=== PATIENT | male | born 1965 | race Caucasian/White ===

== ENCOUNTER → 2017-01-26 | Outpatient (CLI) | payer OTHER ==
[~2017-01-26] MED LIST: ATOR-22 PO; FLUT0.15 NAE; LANS15CA6 PO; OMEG10007 PO
[2017-01-26 13:11] LABS: CHOLESTEROL/HDL RATIO 3.6
== END | disposition home or self-care (01) ==
LOC: C.LABPBG 07:51
PROVIDERS: ATTEND Family Medicine
DX: Z13.220 Encounter for screening for lipoid disorders (principal); Z13.1 Encounter for screening for diabetes mellitus; Z11.59 Encounter for screening for other viral diseases

== ENCOUNTER 2021-01-09 14:27 | Inpatient (IN) ==
--- NOTE | 2021-01-09 14:35 | Emergency Department Note ---
Impression & Plan Cerebrovascular accident, Acute left-sided weakness ED Provider Note Provider: Sherman Pack MD DATE OF SERVICE: 01/09/2021 CHIEF COMPLAINT: HISTORY OF PRESENT ILLNESS: Patient is a 55-year-old gentleman history of hyperlipidemia, allergies, and GERD presenting here today after noted some left facial droop and weakness on his left side. Patient states he received the first shot of coronavirus vaccine 3 days ago on Thursday in his left upper arm. Little bit under the weather yesterday but this morning he states that he noted he felt a bit weak in his left arm and leg. states she noticed he seemed to be "processing "things a bit slower than normal. She states she did not particularly look this morning to see if he was weak but she came back from her home health physical therapy appointments today (she is a physical therapist) and noted these and states she did a quick exam at home and he is having difficulty walking and weakness and skoupw-nn-hkdr ataxia on the left side. Patient denies headache or falls. Denies neck pain. Patient denies any fevers. Patient states that he thinks he noticed some of the weakness symptoms before 8 AM this morning. Does report at times he feels a little bit dizzy. Has had some gait abnormalities per the and this is new on the left side. also noted that he did not seem to be snoring so much overnight she is unsure if maybe had some changes overnight. REVIEW OF SYSTEMS: A total of 10 review of systems was obtained and negative except as stated above in the HPI. PAST MEDICAL HISTORY: As noted above MEDICATIONS: Reviewed home medications with patient and , not on blood thinners or aspirin SOCIAL HISTORY: Non-smoker, works at [employer] PHYSICAL EXAM: GENERAL: alert and oriented in no acute distress on stretcher Head: normocephalic and atraumatic EYES: No injection, discharge or icterus. PERRL NECK: Trachea midline. Supple. ENT: Mucous membranes pink and moist. LUNGS: Airway patent. No retractions. Breath sounds clear with good air entry bilaterally. HEART: Regular rate and rhythm. No chest wall tenderness ABDOMEN: Soft and non-tender, without guarding or rebound. SKIN: Acyanotic, warm, dry, without rashes EXTREMITIES: Without swelling, tenderness or deformity except for some slight soreness of the left upper arm around the site of prior vaccine injection. NEUROLOGICAL: No aphasia. Patient with some moderate left-sided facial droop. Tongue midline. 3-5 strength in the left upper extremity and 4-5 in the right lower extremity. No jgoj-rq-ufdl ataxia bilaterally but left-sided fin robert-to-nose ataxia appreciated. Right upper extremity appears intact with 5 out of 5 strength. Denies any numbness in the upper or lower extremities to exam. EK beats per normal sinus rhythm. No PVC or PAC. No acute ST segment elevation or depression. Normal QTC. CONTINUOUS CARDIAC MONITORING: was ordered and showed a heart rate of 90 bpm in normal sinus rhythm Patient's laboratory studies and imaging reviewed. Differential includes Infection, dehydration, metabolic abnormality, hyp o/hyperglycemia, electrolyte disturbance, anemia, hypoxia, cardiac sources, intracerebral event, toxicologic, neurologic, as well as other pathologies. IMPRESSION/MEDICAL DECISION MAKING: Presentation concerning for CVA. Unfortunately arrives outside for half hour window for TPA given last known well sometime before 8 AM this morning. Does not appear meningitic. No trauma reported. Left-sided facial droop, left upper extremity and left lower extremity mild weakness appreciated with some left ivvxum-vu-[id number] ataxia. CT scan of the head and CT angiogram of the head and neck was ordered. Basic labs were completed as well. Patient not hypoglycemic. EKG without significant change and no significant arrhythmia appreciated while here in the emergency department. Mildly hypertensive. Laboratory studies without significant anemia or leukocytosis. No significant electrolyte abnormality noted. Troponin is negative. Rapid Covid pending for admission. CT of the head without intracranial bleed or mass noted per radiology report. CT angiograms without acute stenosis/occlusion appreciated per the radiology report. Again clinically exam is highly concerning for small vessel stroke versus much less likely a vaccine reaction. Discussed with patient and at bedside. Will defer oral aspirin at this time given failed speech given the facial droop; rectal aspirin ordered but the patient declines medication. Discussed with the hospitalist team for further care as an inpatient. DIAGNOSIS: Left-sided weakness, CVA DISPOSITION: Hospitalist will evaluate Patient was agreeable with this plan. Past Med/Surg History Medical History (Updated 01/09/21 @ 17:15 by JODIE Catalan) Allergic rhinitis Hyperlipidemia Internal hemorrhoids Seasonal allergies Surgical History History of elbow surgery April 13, 2018. Dr Lord History of nasal surgery Nasal Septal Deviation Repair Spermatocele of epididymis May 06, 2018. Dr Nava Status post tendon repair bicep Family History Aunt Breast cancer Father Myocardial infarction Diabetes Grandmother (Maternal) Stroke Mother Atrial fibrillation Hyperlipidemia Malignant neoplasm of oral cavity Daughter No known health problems Denies family history of Colon cancer Ovarian cancer Prostate cancer Social History Smoking Status: Never smoker Second Hand Exposure: Yes; Hx Alcohol Use: No Hx Substance Use: No Preferred Language: Vietnamese Communication Ability: Effective Visual Impairment: No Limitations Hearing Ability: Normal Beliefs That Will Affect Care: None marital status: Current Living Situation: Spouse current occupational status: employed current occupation: production machine shop supervisor at [employer] Other Information That Helps Us Care for You: No Feels Safe at Home: Yes Safety Concerns: Feels Safe At This Time Childhood Exposure to Second-Hand Smoke: Yes Diet Comment: no specific diet Dental Care, Regularly: Yes Physical Activity Frequency: Does not Exercise Seatbelt Use: always Sunscreen Use: Yes Do you think of yourself as: straight/heterosexual Assistive Devices: None Allergies Allergies Allergy/AdvReac Type Severity Reaction Status Date / Time No Known Allergies Allergy Verified 01/09/21 14:49 Home Meds Home Medications Medication Instructions Recorded Confirmed loratadine-pseudoephedrine 1 tab PO DAILY 01/09/21 01/09/21 [Loratadine-D] Previous Rx's Medication Instructions Recorded pantoprazole 40 mg tablet,delayed 40 mg PO DAILY #90 tab 07/19/20 release fluticasone propionate 50 2 spray INTNAS DAILY #48 g 12/06/20 mcg/actuation nasal spray,suspension Results & Data (ED) Vital Signs Vital Signs - 24 hr 01/09/21 14:28 01/09/21 14:57 01/09/21 15:14 Temperature 36.7 C Temperature Source Temporal Artery Scan Pulse Rate 92 H 75 Pulse Rate from SpO2 Sensor 75 Respiratory Rate 16 24 Respiratory Effort / Characteristics Non-Labored Spontaneous Respiratory Depth Normal Blood Pressure 148/96 H Blood Pressure Mean 113 Blood Pressure Position Sitting Pulse Oximetry 99 99 98 Oxygen Delivery Method Room Air Room Air Sepsis Recent Fever Within 48 Hours No Sepsis New/Unexplained Change in Mental Status No Sepsis Action Taken by Nursing No Action Required 01/09/21 15:30 01/09/21 16:00 01/09/21 16:30 Temperature Temperature Source Pulse Rate 73 74 84 Pulse Rate from SpO2 Sensor 73 75 83 Respiratory Rate 16 17 24 Respiratory Effort / Characteristics Respiratory Depth Blood Pressure Blood Pressure Mean Blood Pressure Position Pulse Oximetry 98 99 97 Oxygen Delivery Method Sepsis Recent Fever Within 48 Hours Sepsis New/Unexplained Change in Mental Status Sepsis Action Taken by Nursing 01/09/21 16:47 01/09/21 17:00 Temperature Temperature Source Pulse Rate 77 73 Pulse Rate from SpO2 Sensor Respiratory Rate 22 21 Respiratory Effort / Characteristics Respiratory Depth Blood Pressure 151/90 H 145/92 H Blood Pressure Mean 110 109 Blood Pressure Position Pulse Oximetry 98 Oxygen Delivery Method Room Air Sepsis Recent Fever Within 48 Hours Sepsis New/Unexplained Change in Mental Status Sepsis Action Taken by Nursing Laboratory Data Result diagrams: 01/09/21 14:43 01/09/21 14:43 Lab Results 01/09/21 01/09/21 01/09/21 Range/Units 14:38 14:43 14:43 WBC 8.58 (4.8-10.8) K/uL RBC 5.06 (4.7-6.1) M/uL Hgb 15.2 (14.0-18.0) g/dL Hct 44.5 (42-52) % MCV 87.9 (80-100) fL MCH 30.0 (25-34) pg MCHC 34.2 (32-36) g/dL RDW Std Deviation 42.9 (36.4-46.3) fL RDW Coeff of Mane 13.3 (11.5-14.5) % Plt Count 223 (130-400) K/uL MPV 8.1 (7.4-10.4) fL Immature Gran % (Auto) 0.3 % Neut % (Auto) 64.6 % Lymph % (Auto) 24.8 % [place] % (Auto) 7.8 % Eos % (Auto) 2.3 % Baso % (Auto) 0.2 % Neut # (Auto) 5.53 (1.4-6.5) K/uL Lymph # (Auto) 2.13 (1.2-3.4) K/uL [place] # (Auto) 0.67 H (0.11-0.59) K/uL Eos # (Auto) 0.20 (0-0.5) K/uL Baso # (Auto) 0.02 (0-0.2) K/uL Immature Gran # (Auto) 0.03 H (0.00-0.02) K/uL PT 9.6 (9.0-12.0) Seconds INR 0.9 (0.9-1.1) APTT 25.7 (21.0-31.0) Seconds PTT Ratio 1.0 Sodium (136-145) mmol/L Potassium (3.5-5.1) mmol/L Chloride (98-107) mmol/L Carbon Dioxide (21-32) mmol/L Anion Gap (3-11) BUN (7-18) mg/dl Creatinine (0.6-1.4) mg/dl Est Cr Clr Drug Dosing ml/min Est GFR ( Amer) Est GFR (Non-Af Amer) BUN/Creatinine Ratio (10-20) Glucose (70-99) mg/dl POC Glucose 116 H (70-99) mg/dl Calcium (8.5-10.1) mg/dl Magnesium (1.8-2.4) mg/dl Total Bilirubin (0.2-1) mg/dl AST (15-37) U/L ALT (12-78) U/L Alkaline Phosphatase (45-117) U/L Troponin I (0-0.045) ng/ml Total Protein (6.4-8.2) gm/dl Albumin (3.4-5.0) gm/dl Globulin (2.5-4.0) gm/dl Albumin/Globulin Ratio (0.9-2) COVID-19 Eval Order SARS-CoV-2, RNA, NAAT (NEGATIVE) Blood Type Antibody Screen 01/09/21 01/09/21 01/09/21 Range/Units 14:43 15:09 15:22 WBC (4.8-10.8) K/uL RBC (4.7-6.1) M/uL Hgb (14.0-18.0) g/dL Hct (42-52) % MCV (80-100) fL MCH (25-34) pg MCHC (32-36) g/dL RDW Std Deviation (36.4-46.3) fL RDW Coeff of Mane (11.5-14.5) % Plt Count (130-400) K/uL MPV (7.4-10.4) fL Immature Gran % (Auto) % Neut % (Auto) % Lymph % (Auto) % [place] % (Auto) % Eos % (Auto) % Baso % (Auto) % Neut # (Auto) (1.4-6.5) K/uL Lymph # (Auto) (1.2-3.4) K/uL [place] # (Auto) (0.11-0.59) K/uL Eos # (Auto) (0-0.5) K/uL Baso # (Auto) (0-0.2) K/uL Immature Gran # (Auto) (0.00-0.02) K/uL PT (9.0-12.0) Seconds INR (0.9-1.1) APTT (21.0-31.0) Seconds PTT Ratio Sodium 139 (136-145) mmol/L Potassium 4.0 (3.5-5.1) mmol/L Chloride 107 (98-107) mmol/L Carbon Dioxide 28 (21-32) mmol/L Anion Gap 4.0 (3-11) BUN 15 (7-18) mg/dl Creatinine 1.04 (0.6-1.4) mg/dl Est Cr Clr Drug Dosing 91.9 ml/min Est GFR ( Amer) 93.2 Est GFR (Non-Af Amer) 80.5 BUN/Creatinine Ratio 14.2 (10-20) Glucose 105 H (70-99) mg/dl POC Glucose (70-99) mg/dl Calcium 9.6 (8.5-10.1) mg/dl Magnesium 2.4 (1.8-2.4) mg/dl Total Bilirubin 0.4 (0.2-1) mg/dl AST 18 (15-37) U/L ALT 44 (12-78) U/L Alkaline Phosphatase 81 (45-117) U/L Troponin I < 0.015 (0-0.045) ng/ml Total Protein 7.6 (6.4-8.2) gm/dl Albumin 3.8 (3.4-5.0) gm/dl Globulin 3.8 (2.5-4.0) gm/dl Albumin/Globulin Ratio 1.0 (0.9-2) COVID-19 Eval [facility] SARS-[facility]-2, RNA, NAAT (NEGATIVE) Blood Type A Positive Antibody Screen NEGATIVE 01/09/21 Range/Units 15:22 WBC (4.8-10.8) K/uL RBC (4.7-6.1) M/uL Hgb (14.0-18.0) g/dL Hct (42-52) % MCV (80-100) fL MCH (25-34) pg MCHC (32-36) g/dL RDW Std Deviation (36.4-46.3) fL RDW Coeff of Mane (11.5-14.5) % Plt Count (130-400) K/uL MPV (7.4-10.4) fL Immature Gran % (Auto) % Neut % (Auto) % Lymph % (Auto) % [place] % (Auto) % Eos % (Auto) % Baso % (Auto) % Neut # (Auto) (1.4-6.5) K/uL Lymph # (Auto) (1.2-3.4) K/uL [place] # (Auto) (0.11-0.59) K/uL Eos # (Auto) (0-0.5) K/uL Baso # (Auto) (0-0.2) K/uL Immature Gran # (Auto) (0.00-0.02) K/uL PT (9.0-12.0) Seconds INR (0.9-1.1) APTT (21.0-31.0) Seconds PTT Ratio Sodium (136-145) mmol/L Potassium (3.5-5.1) mmol/L Chloride (98-107) mmol/L Carbon Dioxide (21-32) mmol/L Anion Gap (3-11) BUN (7-18) mg/dl Creatinine (0.6-1.4) mg/dl Est Cr Clr Drug Dosing ml/min Est GFR ( Amer) Est GFR (Non-Af Amer) BUN/Creatinine Ratio (10-20) Glucose (70-99) mg/dl POC Glucose (70-99) mg/dl Calcium (8.5-10.1) mg/dl Magnesium (1.8-2.4) mg/dl Total Bilirubin (0.2-1) mg/dl AST (15-37) U/L ALT (12-78) U/L Alkaline Phosphatase (45-117) U/L Troponin I (0-0.045) ng/ml Total Protein (6.4-8.2) gm/dl Albumin (3.4-5.0) gm/dl Globulin (2.5-4.0) gm/dl Albumin/Globulin Ratio (0.9-2) COVID-19 Eval Order SARS-CoV-2, RNA, NAAT NEGATIVE (NEGATIVE) Blood Type Antibody Screen Administered Medications Aspirin (Aspirin 81 Mg Ectab) 81 mg PO QAM ANASTACIO Stop: 02/08/21 16:44 Last Admin: 01/09/21 16:49 Dose: 81 mg Documented by: [id number] Heparin Sodium (Porcine) (Heparin Sod 5,000 Unit/0.5 Ml Vial) 5,000 units SQ Q12 ANASTACIO Stop: 02/08/21 20:59 Last Admin: 01/09/21 20:37 Dose: 5,000 units Documented by: [id number] Discontinued Medications Aspirin (Aspirin 300 Mg Supp) 300 mg OR ONE ONE Stop: 01/09/21 15:59 Last Admin: 01/09/21 16:45 Dose: Not Given Documented by: [id number] Gadobutrol (Gadobutrol 65ml Vial) 10 ml IV ONCE ONE Stop: 01/09/21 18:12 Last Admin: 01/09/21 18:11 Dose: 10 ml Documented by: [id number] Ioversol (Optiray 320 125ml) 120 ml IV ONCE ONE Stop: 01/09/21 14:59 Last Admin: 01/09/21 14:59 Dose: 120 ml Documented by: [id number] Discharge Plan Visit Data Chief Complaint: Stroke/CVA Symptoms Stated Complaint: STROKE SYMPTOMS ED Provider: Sherman Pack Discharge Problem: Cerebrovascular accident, Acute left-sided weakness Patient Disposition: Home - Self-Care Condition: Fair Discharge Instructions Interventions: ED Discharge Assessment Last Done: 01/09/21 17:57 Discharge Problem: Cerebrovascular accident Qualifiers: CVA mechanism: unspecified Qualified Code(s): I63.9 - Cerebral infarction, unspecified
[2021-01-09 14:58] LABS: Basophils # (auto) 0.02 K/uL (0-0.2); Basophils % (auto) 0.2 %; Eosinophils % (auto) 2.3 %; Hematocrit (blood only) 44.5 % (42-52); Hemoglobin 15.2 g/dL (14.0-18.0); Immature Granulocytes # (auto) 0.03 K/uL (0.00-0.02); Immature Granulocytes % (auto) 0.3 %; Lymphocytes # (auto) 2.13 K/uL (1.2-3.4); Lymphocytes % (auto) 24.8 %; Mean Corpuscular Hgb Conc 34.2 g/dL (32-36); Mean Corpuscular Volume 87.9 fL (80-100); Mean Platelet Volume 8.1 fL (7.4-10.4); Monocytes # (auto) 0.67 K/uL (0.11-0.59); Monocytes % (auto) 7.8 %; Neutrophils # (auto) 5.53 K/uL (1.4-6.5); Neutrophils % (auto) 64.6 %; Platelet Count 223 K/uL (130-400); RDW Coefficient of Variation 13.3 % (11.5-14.5); RDW Standard Deviation 42.9 fL (36.4-46.3); Red Blood Count 5.06 M/uL (4.7-6.1); White Blood Count 8.58 K/uL (4.8-10.8)
[2021-01-09] MEDS ORDERED: OPTIRAY 320 125ml IV ONE (14:58)
--- NOTE | 2021-01-09 14:59 | XRay Report ---
XR chest 1V portable CLINICAL HISTORY: L weakness COMPARISON STUDY: No previous studies for comparison. FINDINGS: The cardiac and mediastinal contours are normal. There is no evidence of focal pulmonary co nsolidation. There is no evidence of failure. No pleural effusions are visualized.[An area of increas ed density within the right lung base laterally, likely represents a rib summation. IMPRESSION: No active disease in the chest. ACT 112: Negative or not required by law. Electronically signed by: Edward Montoya M.D. 01/09/2021 2:58 PM
[2021-01-09 15:04] LABS: INR 0.9 (0.9-1.1); Partial Thromboplastin Time 25.7 Seconds (21.0-31.0); Prothrombin Time 9.6 Seconds (9.0-12.0)
[2021-01-09 15:15] LABS: Alanine Aminotransferase 44 U/L (12-78); Albumin Level 3.8 gm/dl (3.4-5.0); Aspartate Aminotransferase 18 U/L (15-37); BUN Creatinine Ratio 14.2 (10-20); Blood Urea Nitrogen 15 mg/dl (7-18); Calcium 9.6 mg/dl (8.5-10.1); Carbon Dioxide 28 mmol/L (21-32); Chloride 107 mmol/L (98-107); Creatinine Clr Calc Pharmacy 91.9 ml/min; Est GFR (African American) 93.2; Est GFR (Non-African American) 80.5; Glucose 105 mg/dl (70-99); Magnesium 2.4 mg/dl (1.8-2.4); Sodium 139 mmol/L (136-145)
[2021-01-09 15:22] LABS: Alkaline Phosphatase 81 U/L (45-117); Bilirubin,Total 0.4 mg/dl (0.2-1); Globulin 3.8 gm/dl (2.5-4.0); Total Protein 7.6 gm/dl (6.4-8.2); Troponin I < 0.015 ng/ml (0-0.045)
--- NOTE | 2021-01-09 15:23 | CT Scan Report ---
CT angio neck with con, CT angio head w con, CT head/brain wo con CLINICAL HISTORY: 55 years-old Male with Stroke Like Symptoms. Acute strokelike symptoms COMPARISON STUDY: None TECHNIQUE: Following the IV administration of 120 mL of Optiray 320, CT angiogram of the head and nec k was performed from the aortic arch to the skull apex. Images are reviewed in the axial, sagittal, a nd coronal planes. 3-D MIPS images are created and assessed. IV contrast was administered without com plication. All measurements were calculated based on NASCET criteria. Noncontrast head CT also obtain ed. A dose lowering technique was utilized adhering to the principles of ALARA. CT DOSE: 1373.09 mGy.cm FINDINGS: CT HEAD: No acute intracranial hemorrhage, midline shift, abnormal extra-axial collection, hydrocephalus, acut e territorial infarct or intracranial mass. No calvarial fracture. The mastoid air cells and paranasa l sinuses are clear. Unremarkable soft tissues and orbits. CTA HEAD AND NECK: The opacified pulmonary arterial tree is unremarkable. Three-vessel morphology of the thoracic aortic arch. Patency of the innominate and imaged subclavian arteries. Patency of the common and internal c arotid arteries. There is no significant atherosclerotic vascular disease. The middle and anterior ce rebral arteries are patent. Hypoplastic right A1 segment is likely on a developmental basis. Anterior cerebral arteries are otherwise patent and unremarkable. Vertebral arteries are patent and codominan t. The basilar and posterior cerebral arteries are patent and within normal limits. origin of t he right posterior cerebral artery. Cerebral venous sinuses are patent. There is no abnormal intracra nial enhancement. Lung apices are clear. No pneumothorax. Unremarkable soft tissues of the neck. Multilevel degenerativ e changes of the cervical spine. Mild mucosal thickening of the paranasal sinuses. IMPRESSION: 1. No acute intracranial abnormality. 2. Unremarkable CTA of the head and neck. ACT 112: Negative or not required by law. The above report was generated using voice recognition software. It may contain grammatical, syntax o r spelling errors. Electronically signed by: [email or web address] Hathaway M.D. 01/09/2021 3:21 PM
[2021-01-09] MEDS ORDERED: ASPIRIN 300 MG SUPP PR ONE (15:58)
--- NOTE | 2021-01-09 16:34 | Electrocardiogram Report ---
Test Reason : Blood Pressure : / mmHG Vent. Rate : 081 BPM Atrial Rate : 081 BPM P-R Int : 148 ms QRS Dur : 088 ms QT Int : 364 ms P-R-T Axes : 038 027 066 degrees QTc Int : 422 ms Normal sinus rhythm Normal ECG When compared with ECG of 07-APR-2018 15:56, No significant change Confirmed by Mraiano Mcbride ([id number]) on 01/09/2021 4:34:42 PM Referred By: REFERRED SELF Confirmed By:Mariano Mcbride
--- NOTE | 2021-01-09 16:44 | History & Physical Report ---
Date of Service January 09, 2021 Assessment & Plan (1) Cerebrovascular accident: Acute CVA out of the window for TPA, with left sided facial droop, left arm weakness and discoordinate, left leg weakness and ataxia. Mild slurring of words and expressive aphasia. NIHSS-4 - Swallow screen passed in EMD- Ok for oral intake, speech consult placed. - ASA given - Will start on Rosuvastatin high intensity - Neurology consulted- Thank you for your assistance - PT/OT consult- continue rehab as outpatient as needed for recovery - Allow for permissive hypertensive - MRI pending - ECHO with bubble study - Telemetry for afib monitoring for 24 hours - Fall precautions Neuro checks q2 hours, any acute change obtain repeat head CT. (2) Hyperlipidemia: Lipid panel from 06/2020 with significantly elevated LDL in the 180s Intolerance with myalgias to atorvastatin in the past Patient is agreeable to starting rosuvastatin Can add co-Q10 if needed for myalgias (3) Obesity: Patient with metabolic syndrome components - HLD as above - Glucose 105---A1c ordered for morning - Address hypertension if persists - TSH for morning labs (4) Acid reflux: Continue outpatient medications - followed by PCP, likely time for evaluation for treatment of mcc GERD (5) Seasonal allergies: Continue home loratidine and flonase, discontinue pseudoephedrine portion of Claritin-D in the setting of acute stroke and hypertension (6) Allergic rhinitis: As above. (7) DVT prophylaxis: Heparin SQ Disposition-admit to PCU History of Present Illness Primary Care Provider: Anayeli Hooper MD 55 YOM with past medical history of HLD, seasonal allergies, allergic rhinitis and COVID in . Never smoke or used tobacco. Patient was last known well Thursday at 1500. Patient had received his COVID vaccine on Thursday, and he was tired on Thursday and on Thursday. His originally noticed a delay in processing and speech, but thought he was just tired after the vaccine, so he went to sleep. When he awoke he had left facial droop, left leg weakness, and left arm weakness. She also noticed that he was having difficulty tying his shoe and he and his noted that he was having balance and gait issues with the left leg. Patient is able to recall going to work on Thursday and coming home, then going to sleep. The patient was not a candidate for tPA secondary to time last known well. He had a CTA of the head and neck and CT of the head in the ER, CXR, ECG. He has passed his bedside swallow and was given 81mg ASA. Catrachito ulloa will be admitted for CVA, MRI, ECHO, telemetry monitoring for Afib, and PT/OT with neurology consult. Patient was on Atorvastatin before, but he independently stopped it "a couple years ago" secondary to myalgias. Other risk factors include obesity and ? untreated hypertension, social alcohol use that is "rare". Allergies Allergy/AdvReac Type Severity Reaction Status Date / Time No Known Allergies Allergy Verified 01/09/21 14:49 Home Medications Medication Instructions Recorded Confirmed Type pantoprazole 40 mg tablet,delayed 40 mg PO DAILY #90 tab 07/19/20 01/09/21 Rx release fluticasone propionate 50 2 spray INTNAS DAILY #48 g 12/06/20 01/09/21 Rx mcg/actuation nasal spray,suspension loratadine-pseudoephedrine 1 tab PO DAILY 01/09/21 01/09/21 History [Loratadine-D] Past Med/Surg History Medical History (Updated 01/09/21 @ 23:26 by Olinda Hassan MD) Allergic rhinitis Hyperlipidemia Internal hemorrhoids Seasonal allergies Surgical History History of elbow surgery April 13, 2018. Dr Lord History of nasal surgery Nasal Septal Deviation Repair Spermatocele of epididymis May 06, 2018. Dr Nava Status post tendon repair bicep Family History (Updated 01/09/21 @ 23:35 by Olinda Hassan MD) Aunt Breast cancer Father Myocardial infarction Diabetes Grandmother (Maternal) Stroke Mother Atrial fibrillation Hyperlipidemia Malignant neoplasm of oral cavity Daughter No known health problems Brother Coronary heart disease Denies family history of Colon cancer Ovarian cancer Prostate cancer Social History Smoking Status: Never smoker Second Hand Exposure: Yes; Hx Alcohol Use: No Hx Substance Use: No Preferred Language: Syriac Communication Ability: Effective Visual Impairment: No Limitations Hearing Ability: Normal Beliefs That Will Affect Care: None marital status: Current Living Situation: Spouse current occupational status: employed current occupation: trucking supervisor at [employer] Other Information That Helps Us Care for You: No Feels Safe at Home: Yes Safety Concerns: Feels Safe At This Time Childhood Exposure to Second-Hand Smoke: Yes Diet Comment: no specific diet Dental Care, Regularly: Yes Physical Activity Frequency: Does not Exercise Seatbelt Use: always Sunscreen Use: Yes Do you think of yourself as: straight/heterosexual Assistive Devices: None Review of Systems Review of Systems: REVIEW OF SYSTEMS: Constitutional: No fever, sweats or chills Eyes: No diplopia, no worsening or blurred vision ENT: normal hearing, no trouble swallowing Respiratory: No cough, sputum, dyspnea at rest or on exertion Cardiovascular: No chest pain, tightness or palpitations Abdomen: No pain, nausea, vomiting, diarrhea or constipation Musculoskeletal: No joint pain, calf pain, swelling Neurologic: (+) left sided weakness, numbness/tingling, and balance problems Psychiatric: No anxiety or depression Skin: No rash or itch Physical Exam Physical Exam: PHYSICAL EXAM: General: awake, alert, no apparent distress Head: Normocephalic, atraumatic ENT: PERRL, EOMI, no pharyngeal exudate, mucous membranes moist Neuro: AAO x 3, mild speech slurring, but appropriate, strength intact 5/5 right side, 4/5 left side, sensation intact and equal all extremities and dermatomes, no pronator drift, Left sided ataxia and fine motor coordination difficulties on left side, overshoot on finger to nose with left side. Ataxic gait with left side heel to toe, and with heel walking. No difficulty reading or writing. NIHSS-4 Chest: equal rise and fall of the chest, no accessory muscle use, no heaves or thrills, Clear to auscultation, on room air, Cardiac: Regular rate and rhythm, telemetry reviewed, skin warm dry, cap refill <3 seconds, peripheral pulses +2 no JVD, no murmur, no JVD, no edema GI: NABS x 4 quadrants, soft, nontender to palpation, no rebound, guarding or tenderness : Spontaneously voiding, no pain, no CVA tenderness, Extremities: Normal inspection, no peripheral edema or erythema, calfs nontender to palpation Psych: Normal mood and affect Skin: no rash or erythema Results & Data Results & Data ([facility]) Vital Signs (Past 12 Hours) Vital Signs Temp Pulse Resp BP Pulse Ox 01/09/21 14:57 99 01/09/21 14:28 36.7 C 92 H 16 148/96 H 99 Laboratory Results Abnormal lab results 01/09/21 01/09/21 01/09/21 Range/Units 14:38 14:43 14:43 [place] # (Auto) 0.67 H (0.11-0.59) K/uL Immature Gran # (Auto) 0.03 H (0.00-0.02) K/uL Glucose 105 H (70-99) mg/dl POC Glucose 116 H (70-99) mg/dl Diagnostic Findings CT angio neck with con, CT angio head w con, CT head/brain wo con CLINICAL HISTORY: 55 years-old Male with Stroke Like Symptoms. Acute strokelike symptoms COMPARISON STUDY: None TECHNIQUE: Following the IV administration of 120 mL of Optiray 320, CT angiogram of the head and neck was performed from the aortic arch to the skull a pex. Images are reviewed in the axial, sagittal, and coronal planes. 3-D MIPS images are created and assessed. IV contrast was administered without complication. All measurements were calculated based on NASCET criteria. Noncontrast head CT also obtained. A dose lowering technique was utilized adhering to the principles of ALARA. CT DOSE: 1373.09 mGy.cm FINDINGS: CT HEAD: No acute intracranial hemorrhage, midline shift, abnormal extra-axial collection, hydrocephalus, acute territorial infarct or intracranial mass. No calvarial fracture. The mastoid air cells and paranasal sinuses are clear. Unremarkable soft tissues and orbits. CTA HEAD AND NECK: The opacified pulmonary arterial tree is unremarkable. Three-vessel morphology of the thoracic aortic arch. Patency of the innominate and imaged subclavian arteries. Patency of the common and internal carotid arteries. There is no significant atherosclerotic vascular disease. The middle and anterior cerebral arteries are patent. Hypoplastic right A1 segment is likely on a developmental basis. Anterior cerebral arteries are otherwise patent and unremarkable. Vertebral arteries are patent and codominant. The basilar and posterior cerebral arteries are patent and within normal limits. origin of the right posterior cerebral artery. Cerebral venous sinuses are patent. There is no abnormal intracranial enhancement. Lung apices are clear. No pneumothorax. Unremarkable soft tissues of the neck. Multilevel degenerative changes of the cervical spine. Mild mucosal thickening of the paranasal sinuses. IMPRESSION: 1. No acute intracranial abnormality. 2. Unremarkable CTA of the head and neck. Medications Administered Aspirin (Aspirin 81 Mg Ectab) 81 mg PO QAM [facility] Stop: 02/08/21 16:44 Last Admin: 01/09/21 16:49 Dose: 81 mg Documented by: [id number] Discontinued Medications Aspirin (Aspirin 300 Mg Supp) 300 mg CA ONE ONE Stop: 01/09/21 15:59 Last Admin: 01/09/21 16:45 Dose: Not Given Documented by: [id number] Ioversol (Optiray 320 125ml) 120 ml IV ONCE ONE Stop: 01/09/21 14:59 Last Admin: 01/09/21 14:59 Dose: 120 ml Documented by: [id number] Home Medications pantoprazole 40 mg tablet,delayed release 40 mg PO DAILY #90 tab 07/19/20 [Rx Confirmed 01/09/21] fluticasone propionate 50 mcg/actuation nasal spray,suspension 2 spray INTNAS DAILY #48 g 12/06/20 [Rx Confirmed 01/09/21] loratadine-pseudoephedrine [Loratadine-D] 1 tab PO DAILY 01/09/21 [History Confirmed 01/09/21] Active Medications Aspirin (Aspirin 81 Mg Ectab) 81 mg PO QAM [facility] Stop: 02/08/21 16:44 Last Admin: 01/09/21 16:49 Dose: 81 mg Documented by: Code Status & VTE Plan Code Status CODE: FULL VTE: SCD's, Heparin 5000 q12 VTE Prophylaxis Plan VTE Prophylaxis will be ordered: Yes Supervising Physician Co-Signing Physician Notes JODIE Supervision note: I have personally seen and examined the patient and discussed and verified the vincent points of the history and physical along with the plan with JODIE Sanchez with the following exceptions and/or additions: This patient is a 55-year-old male with a history of hyperlipidemia, obesity, who presents to the ER with 1 to 2 days of change in mental status with being slow to respond followed by development of left facial droop and left-sided weakness at some point this morning. He denies headache or visual changes. No history of high blood pressure in the past but only gets it checked once a year at annual doctors visits. He denies any nausea or vomiting, no dizziness. He has had difficulty picking things up with his left hand and using his left arm today. His reports that he is not his usual self and usually is very quick to respond with answers but has been quite slow in doing so. History and ROS reviewed as above Vitals reviewed Gen: AAOx3, NAD HEENT: Anicteric sclerae, EOMI, PERRLA, no nystagmus CV: RRR no mgr nl S1S2 Pulm: CTAB no wcr Abd: +BS soft NT ND no masses or hernias Ext: No edema, 2+ DP pulses Skin: No rashes, warm/dry Neuro: Cranial nerves II through XII intact except with left-sided facial droop with preserved wrinkles and forehead on the left; 4/5 strength throughout left upper extremity and 4+/5 strength throughout left lower extremity, otherwise 5/5 strength on the right side; sensation intact to light touch throughout; DTRs 2+ throughout and 3+ in the left patellar; rapid alternating hands normal on the right and abnormal in the left, [id number] abnormal in the left, positive pronator drift on the left Laboratory values reviewed Imaging reviewed ECG reviewed-normal sinus rhythm, normal rate, no ischemic changes 55-year-old male here with hyperlipidemia, obesity, with new onset receptive aphasia and left-sided weakness along with left sided ataxia, strongly suspect acute CVA. Admit with stroke order set as above -Start aspirin 81 mg daily and high intensity rosuvastatin Permissive hypertension Neurology consult MRI brain Echo with bubble study Monitor on telemetry for arrhythmias PG Care Time/CCT Total # of Minutes Spent Total Time Spent with Patient: Total time spent is greater than 50% in coordination of care (as documented) at patient's floor/unit and/or counseling patient: Coding Level of Care Code 52897 Initial Inpt Care Lvl 3 Diagnoses Cerebrovascular accident I63.9 CVA mechanism: unspecified Hyperlipidemia E78.5 Hyperlipidemia type: unspecified Obesity E66.09; Z68.30 Body mass index: BMI 30.0-30.9 Obesity classification: adult class 1 (BMI 30 - 34.9) Obesity type: due to excess calories Serious obesity comorbidity presence: unspecified whether serious comorbidity present Acid reflux K21.9 Esophagitis presence: esophagitis presence not specified Seasonal allergies J30.2 Allergic rhinitis J30.2 Allergic rhinitis seasonality: seasonal Allergic rhinitis trigger: unspecified DVT prophylaxis Z29.9 (1) Hyperlipidemia Hyperlipidemia type: unspecified Qualified Code(s): E78.5 - Hyperlipidemia, unspecified (2) Cerebrovascular accident CVA mechanism: unspecified Qualified Code(s): I63.9 - Cerebral infarction, unspecified (3) Acid reflux Esophagitis presence: esophagitis presence not specified Qualified Code(s): K21.9 - Gastro-esophageal reflux disease without esophagitis (4) Allergic rhinitis Allergic rhinitis seasonality: seasonal Allergic rhinitis trigger: unspecified Qualified Code(s): J30.2 - Other seasonal allergic rhinitis (5) Obesity Body mass index: BMI 30.0-30.9 Obesity classification: adult class 1 (BMI 30 - 34.9) Obesity type: due to excess calories Serious obesity comorbidity presence: unspecified whether serious comorbidity present Qualified Code(s): E66.09 - Other obesity due to excess calories; Z68.30 - Body mass index [BMI ]30.0-30.9, adult
[2021-01-09] MEDS: ASPIRIN 81 MG ECTAB PO SCH (16:49)
[2021-01-09] MEDS ORDERED: GADOBUTROL 65ML VIAL IV ONE (18:11)
[2021-01-09] MEDS ORDERED: POLYETHYLENE (MIRALAX) 17 GM PACK PO PRN (18:50)
[2021-01-09] MEDS ORDERED: PHARMACIST DISCHARGE MED REC CONSULT PRN (18:50)
[2021-01-09] MEDS ORDERED: ACETAMINOPHEN 325 MG TAB PO PRN (18:50)
[2021-01-09] MEDS ORDERED: ONDANSETRON INJ 2 MG/ML 2 ML VIAL IV PRN (18:50)
--- NOTE | 2021-01-09 19:20 | Magnetic Resonance Report ---
Brain MRI WITH AND WITHOUT CONTRAST HISTORY: stroke with left sided weakness and facial droop TECHNIQUE: Multiplanar multisequence MRI of the brain was performed both before and after the intrave nous administration of contrast. COMPARISON STUDY: Head CTA 01/09/2021. FINDINGS: There is a 9 mm focus of restricted diffusion within the right midbrain best seen on image 9. This is consistent with a small acute infarct. There is associated mild edema at this location wit hout mass effect. The remaining midline structures are intact. Mild mucosal thickening within the max illary sinuses. The mastoid air cells are clear. The major vascular flow voids at the skull base are well-maintained. The ventricles and sulci are within normal limits. There is no mass, hematoma, or mi dline shift. The orbits are unremarkable. No abnormal enhancement. IMPRESSION: A 9 mm acute right midbrain infarct. ACT 112: Negative or not required by law. Electronically signed by: Faisal Teague M.D. 01/09/2021 7:19 PM
[2021-01-09] MEDS: HEPARIN SOD 5,000 UNIT/0.5 ML VIAL SQ SCH (20:37)
[2021-01-10 06:43] LABS: Basophils # (auto) 0.02 K/uL (0-0.2); Basophils % (auto) 0.2 %; Eosinophils # (auto) 0.18 K/uL (0-0.5); Eosinophils % (auto) 1.8 %; Hematocrit (blood only) 44.7 % (42-52); Hemoglobin 15.4 g/dL (14.0-18.0); Immature Granulocytes # (auto) 0.01 K/uL (0.00-0.02); Immature Granulocytes % (auto) 0.1 %; Lymphocytes # (auto) 2.05 K/uL (1.2-3.4); Mean Corpuscular Hemoglobin 30.1 pg (25-34); Mean Corpuscular Hgb Conc 34.5 g/dL (32-36); Mean Corpuscular Volume 87.5 fL (80-100); Mean Platelet Volume 8.3 fL (7.4-10.4); Monocytes # (auto) 0.58 K/uL (0.11-0.59); Monocytes % (auto) 5.9 %; Neutrophils # (auto) 6.94 K/uL (1.4-6.5); Platelet Count 221 K/uL (130-400); RDW Coefficient of Variation 13.4 % (11.5-14.5); Red Blood Count 5.11 M/uL (4.7-6.1); White Blood Count 9.78 K/uL (4.8-10.8)
[2021-01-10 07:15] LABS: BUN Creatinine Ratio 12.8 (10-20); Calcium 9.5 mg/dl (8.5-10.1); Creatinine Clr Calc Pharmacy 94.6 ml/min; Est GFR (African American) 97.8; Est GFR (Non-African American) 84.4; Potassium 4.1 mmol/L (3.5-5.1)
[2021-01-10 07:30] LABS: Thyroid Stimulating Hormone 4.35 uIu/ml (0.300-4.500)
--- NOTE | 2021-01-10 07:56 | Hospitalist Progress Note ---
Date of Service January 10, 2021 Assessment & Plan (1) Cerebrovascular accident: Acute CVA out of the window for TPA, with left sided facial droop, left arm weakness and discoordinate, left leg weakness and ataxia. Mild slurring of words and expressive aphasia. NIHSS-4 - Swallow screen passed in EMD- Ok for oral intake, speech consult placed. - ASA given - Will start on Rosuvastatin high intensity - Neurology consulted- - PT/OT consult- continue rehab as outpatient as needed for recovery - Allow for permissive hypertensive - MRI 01/09/21 IMPRESSION: A 9 mm acute right midbrain infarct. - CTA head and neck unremarkable - ECHO with bubble study pending - Telemetry for afib monitoring for 24 hours - Fall precautions Neuro checks q2 hours, any acute change obtain repeat head CT. (2) Hyperlipidemia: Lipid panel from 06/2020 with significantly elevated LDL in the 180s Intolerance with myalgias to atorvastatin in the past Patient is agreeable to starting rosuvastatin Can add co-Q10 if needed for myalgias (3) Obesity: Patient with metabolic syndrome components - HLD as above - Glucose 105---A1c ordered for morning - Address hypertension if persists - TSH for morning labs (4) Acid reflux: Continue outpatient medications - followed by PCP, likely time for evaluation for treatment of fpc GERD (5) Seasonal allergies: Continue home loratidine and flonase, discontinue pseudoephedrine portion of Claritin-D in the setting of acute stroke and hypertension (6) Allergic rhinitis: As above. (7) DVT prophylaxis: Heparin SQ Disposition-admit to PCU Admission and Anticipated Discharge Date Admission Date: January 09, 2021 Results & Data Results & Data ([facility]) Vital Signs (Past 12 Hours) Vital Signs Temp Pulse Resp BP Pulse Ox 01/10/21 07:38 98.2 F 68 18 135/86 96 01/10/21 03:35 98.4 F 70 18 134/87 97 01/09/21 23:06 98.4 F 63 18 148/93 H 97 PG Care Time/CCT Total # of Minutes Spent Total Time Spent with Patient: Total time spent is greater than 50% in coordination of care (as documented) at patient's floor/unit and/or counseling patient: Coding Diagnoses Cerebrovascular accident I63.9 CVA mechanism: unspecified Hyperlipidemia E78.5 Hyperlipidemia type: unspecified Obesity E66.09; Z68.30 Body mass index: BMI 30.0-30.9 Obesity classification: adult class 1 (BMI 30 - 34.9) Obesity type: due to excess calories Serious obesity comorbidity presence: unspecified whether serious comorbidity present Acid reflux K21.9 Esophagitis presence: esophagitis presence not specified Seasonal allergies J30.2 Allergic rhinitis J30.2 Allergic rhinitis seasonality: seasonal Allergic rhinitis trigger: unspecified DVT prophylaxis Z29.9 (1) Hyperlipidemia Hyperlipidemia type: unspecified Qualified Code(s): E78.5 - Hyperlipidemia, unspecified (2) Cerebrovascular accident CVA mechanism: unspecified Qualified Code(s): I63.9 - Cerebral infarction, unspecified (3) Acid reflux Esophagitis presence: esophagitis presence not specified Qualified Code(s): K21.9 - Gastro-esophageal reflux disease without esophagitis (4) Allergic rhinitis Allergic rhinitis seasonality: seasonal Allergic rhinitis trigger: unspecified Qualified Code(s): J30.2 - Other seasonal allergic rhinitis (5) Obesity Body mass index: BMI 30.0-30.9 Obesity classification: adult class 1 (BMI 30 - 34.9) Obesity type: due to excess calories Serious obesity comorbidity presence: unspecified whether serious comorbidity present Qualified Code(s): E66.09 - Other obesity due to excess calories; Z68.30 - Body mass index [BMI]30.0-30.9, adult
[2021-01-10] MEDS: HEPARIN SOD 5,000 UNIT/0.5 ML VIAL SQ SCH (08:19)
[2021-01-10] MEDS ORDERED: ROSUVASTATIN CALCIUM 10 MG TAB PO SCH (09:00)
[2021-01-10] MEDS ORDERED: LORATADINE 10 MG TAB PO SCH (09:00)
[2021-01-10] MEDS ORDERED: LORATADINE/PSEUDOEPHEDRINE 1 TABCR PO SCH (09:00)
[2021-01-10] MEDS ORDERED: ROSUVASTATIN CALCIUM 20 MG TAB PO SCH (09:00)
[2021-01-10] MEDS ORDERED: PANTOprazole 40 MG TAB PO SCH (09:00)
[2021-01-10] MEDS ORDERED: FLUTICASONE PROPIONATE NA SPR 16 GM BTL NAE SCH (09:00)
--- NOTE | 2021-01-10 09:08 | Neurology Consultation ---
Date of Consultation January 10, 2021 Assessment & Plan (1) Acute ischemic stroke: Acute ischemic stroke to the right midbrain presenting with a mild contralateral hemiparesis and ataxia and ipsilateral partial 3rd nerve palsy, primarily ptosis with some saccadic intrusions for smooth pursuit. No associated pupillary abnormalities or gross ophthalmoplegia. Stroke risk factors for this patient include hyperlipidemia and possibly COVID- 19 infection this past September. Agree with aspirin 81 mg/day and Crestor as ordered. Follow-up with results of echocardiogram. Consider obtaining an outpatient 30-day cardiac cath technician. PT/OT/speech therapy. No further immediate recommendations. History of Present Illness Reason for Consultation: Stroke Requesting Physician: JODIE Ballard Attending Physician: Tito Hilliard MD History of Present Illness The patient is a 55-year-old male who presented to the emergency department yesterday afternoon complaining of left-sided weakness and mild confusion or slow cognitive processing that may have began the preceding day. The left-sided weakness was more obvious upon awakening yesterday morning, however. Patient symptoms have been persistent. Past medical history notable for hyperlipidemia. He has a history of intolerance to atorvastatin. He was diagnosed with COVID- 19 this past September and had received a COVID-19 vaccination this past Thursday. He is a non-smoker. He had presented outside of the window for TPA. He has undergone a thorough neuro imaging evaluation including CT of the head, CT angiography of the head and neck, and brain MRI. He was found to have a 9 mm acute right midbrain infarct. Imaging described in further detail below. Allergies Allergy/AdvReac Type Severity Reaction Status Date / Time No Known Allergies Allergy Verified 01/09/21 14:49 Home Medications Medication Instructions Recorded Confirmed Type fluticasone propionate 50 2 spray INTNAS DAILY #48 g 12/06/20 01/09/21 Rx mcg/actuation nasal spray,suspension loratadine-pseudoephedrine 1 tab PO DAILY 01/09/21 01/09/21 History [Loratadine-D] pantoprazole 40 mg tablet,delayed 40 mg PO DAILY #90 tab 01/10/21 Rx release Patient History Medical History (Updated 01/10/21 @ 09:27 by Kyle Streeter MD) Allergic rhinitis Hyperlipidemia Internal hemorrhoids Seasonal allergies Surgical History History of elbow surgery April 13, 2018. Dr Lord History of nasal surgery Nasal Septal Deviation Repair Spermatocele of epididymis May 06, 2018. Dr Nava Status post tendon repair bicep Family History (Updated 01/09/21 @ 23:35 by Olinda Hassan MD) Aunt Breast cancer Father Myocardial infarction Diabetes Grandmother (Maternal) Stroke Mother Atrial fibrillation Hyperlipidemia Malignant neoplasm of oral cavity Daughter No known health problems Brother Coronary heart disease Denies family history of Colon cancer Ovarian cancer Prostate cancer Social History Smoking Status: Never smoker Second Hand Exposure: Yes; Hx Alcohol Use: No Hx Substance Use: No Preferred Language: [place] Verdean Communication Ability: Effective Visual Impairment: No Limitations Hearing Ability: Normal Beliefs That Will Affect Care: None marital status: Current Living Situation: Spouse current occupational status: employed current occupation: film processing shift supervisor at [employer] Other Information That Helps Us Care for You: No Feels Safe at Home: Yes Safety Concerns: Feels Safe At This Time Childhood Exposure to Second-Hand Smoke: Yes Diet Comment: no specific diet Dental Care, Regularly: Yes Physical Activity Frequency: Does not Exercise Seatbelt Use: always Sunscreen Use: Yes Do you think of yourself as: straight/heterosexual Assistive Devices: None Review of Systems Constitutional: no fever and no chills Eyes: no blind spots and no diplopia Ear, Nose, Mouth, Throat: no hearing loss Respiratory: no cough and no dyspnea Cardiovascular: no chest pain and no palpitations Gastrointestinal: no nausea and no vomiting Genitourinary: no dysuria Musculoskeletal: no neck pain and no myalgia Integumentary: no rash and no lesions Neurologic: as per Subjective / HPI Psychiatric: no depression and no anxiety Hematologic / Lymphatic: no easy bleeding and no easy bruising Exam (Neuro) Constitutional: well developed and well nourished; no acute distress Eyes: normal visual mas by confrontation, PERRL, normal accommodation and EOM intact bilaterally; no fundoscopic abnormality, no nystagmus and no papilledema There is moderate right upper lid ptosis noted. Cardiovascular: Vessels: normal carotid upstroke; no carotid bruit Neurologic: Oriented to:: Person, Place and Time Memory: Short Term Intact and Remote Intact Attention: Span Intact and Concentration Intact Language: Naming Objects and Repeating Phrases Speech Fluency: negative Dysarthria Speech Aphasia: negative Aphasia Fund of Knowledge: Current Events, Past History and Vocabulary Cranial Nerves: Normal II (Visual mas full to confrontation, visual acuity normal), V (Facial sensation intact), VIII (Hearing intact), IX, X (Palate elevates to midline), XI (Shoulder shrug intact) and XII (Tongue protrudes to midline); Abnorm III, IV, (Pupils are equal, round, and reactive to light. Eye movements are intact although there is subtle saccadic substitution for smooth pursuit with the right eye only. There is a moderate degree of right upper lid ptosis as well.) and VII (There is left lower facial weakness.) Motor Strength: Hemiparesis (There is a mild left hemiparesis characterized primarily by left upper extremity pronator drift, mild dysmetria with [id number] and [id number] on the left, and mild impairment of fine finger movements for the left hand.) Laterality: Left; negative Normal Lower Extremities, Normal Upper Extremities and Pronator Drift Motor Tone: Normal Lower Extremities and Normal Upper Extremities Muscle Bulk/Involuntary Movements: No Involuntary Movements; negative Muscle Atrophy Sensation: Light Touch Intact, Pain/Temperature Intact, Vibration Intact and Proprioception Intact Coordination: Normal, Finger-Nose Abnormal Laterality: Left and Heel- Chavarria Abnormal Laterality: Left; negative Limited Balance and Dysdiadochokinesia Deep Tendon Reflexes: Rt Triceps: 2+, Lt Triceps: 2+, Rt Biceps: 2+, Lt Biceps: 2+, Rt Brachioradialis: 2+, Lt Brachioradialis: 2+, Rt Patellar: 2+, Lt Patellar: 2+, Rt Ankle: 2+ and Lt Ankle: 2+ Special Tests: Babinski Present (The left plantar responses upgoing, right plantar response downgoing.) Gait: negative Normal Station and Gait Details: Gait not tested in the context of patient's current neurological/medical status. Results & Data ([facility]) Vital Signs (Past 12 Hours) Vital Signs Temp Pulse Resp BP Pulse Ox 01/10/21 07:38 36.8 C 68 18 135/86 96 01/10/21 03:35 36.9 C 70 18 134/87 97 01/09/21 23:06 36.9 C 63 18 148/93 H 97 Laboratory Results WBC 9.78, hemoglobin 15.4, hematocrit 44.7, platelet count 221, sodium 139, potassium 4.1, BUN 13, creatinine 1.00, glucose 110, calcium 2.4, troponin less than 0.015, triglycerides 144, cholesterol 254, LDL 183, VLDL 29, HDL 42, TSH 4.350. Diagnostic Findings CT of the head including CT angiography of the head and neck were unremarkable. MRI of the brain reveals an acute 9 mm right midbrain infarct. These findings were observed by the interpreting radiologist. I reviewed the images as well and agree. An electrocardiogram reveals a sinus rhythm, 81 bpm. Coding Level of Care Code 61441 Inpt Consult Level 5 Diagnoses Acute ischemic stroke I63.9
[2021-01-10 10:26] LABS: Appearance Urine Cloudy (Clear); Bacteria Urine Automated Negative (Negative); Bilirubin Urine Negative (Negative); Blood Urine Negative (Negative); Cast Urine Automated 0 /lpf (0-5); Color Urine Dark Yellow; Epithelial Cell Urine Auto 0-5 /lpf (0-5); Glucose Urine UA Negative (Negative); Ketones Urine Negative (Negative); Leukocyte Esterase Urine Negative (Negative); Nitrite Urine Negative (Negative); Protein Urine Negative (Negative); RBC Urine Automated 0-4 /hpf (0-4); Specific Gravity Urine 1.028 (1.000-1.030); Urobilinogen Urine Negative (Negative); WBC Urine Automated 0 /hpf (0-5)
[2021-01-10 10:49] LABS: Estimated Average Glucose 120 mg/dl; Hemoglobin A1C 5.8 % (4.5-5.6)
[2021-01-10] MEDS: ASPIRIN 81 MG ECTAB PO SCH (10:54)
[2021-01-10] MEDS ORDERED: ASPIRIN 81 MG CHEW ONE (10:55)
--- NOTE | 2021-01-10 15:15 | Pharmacy Report ---
Pharmacist Stroke Counseling - Date of Service January 10, 2021 - Scope: Pharmacy has been consulted to provide medication discharge counseling for this patient admitted with ischemic stroke as per the Pharmacist Discharge Counseling for Stroke Patients Protocol. - Medications on Discharge: New Rx's Medication Instructions Recorded fluticasone propionate 50 2 spray INTNAS DAILY #48 g 12/06/20 mcg/actuation nasal spray,suspension aspirin 81 mg PO QAM #90 tab 01/10/21 loratadine [Wal-itin] 10 mg PO QAM #30 tab 01/10/21 pantoprazole 40 mg tablet,delayed 40 mg PO DAILY #90 tab 01/10/21 release rosuvastatin [Crestor] 20 mg PO QAM #30 tab 01/10/21 - Action: The above medications, specifically ones for stroke treatment/prophylaxis, have been reviewed in detail with the patient and patient's prior to discharge. This includes indication, common adverse reactions, drug interactions, and medication administration. Medication counseling has been employed using the teach-back method to ensure understanding. - Outcome: The patient and patient's have demonstrated understanding of the medications. Additional comments: Patient has had muscle pains and stomach pains to atorvastatin, patient aware to follow up immediately with Dr Hooper if any side effects occur with rosuvastatin. Also discussed non-pharmacological ways to help cholesterol, diet, exercise, etc. Thank you for allowing pharmacy to be involved in the care of this patient. Please call [phone] with any additional questions
--- NOTE | 2021-01-10 15:35 | XCELERA ---
[id number]
[2021-01-10] MEDS ORDERED: STROKE PATIENT DISCHARGE STA (16:22)
--- NOTE | 2021-01-10 16:29 | Discharge Summary ---
Date of Service January 10, 2021 Admission HPI Per Admitting Provider 55 YOM with past medical history of HLD, seasonal allergies, allergic rhinitis and COVID in . Never smoke or used tobacco. Patient was last known well Thursday at 1500. Patient had received his COVID vaccine on Thursday, and he was tired on Thursday and on Thursday. His originally noticed a delay in processing and speech, but thought he was just tired after the vaccine, so he went to sleep. When he awoke he had left facial droop, left leg weakness, and left arm weakness. She also noticed that he was having difficulty tying his shoe and he and his noted that he was having balance and gait issues with the left leg. Patient is able to recall going to work on Thursday and coming home, then going to sleep. The patient was not a candidate for tPA secondary to time last known well. He had a CTA of the head and neck and CT of the head in the ER, CXR, ECG. He has passed his bedside swallow and was given 81mg ASA. Patient will be admitted for CVA, MRI, ECHO, telemetry monitoring for Afib, and PT/OT with neurology consult. Patient was on Atorvastatin before, but he independently stopped it "a couple years ago" secondary to myalgias. Other risk factors include obesity and ? un treated hypertension, social alcohol use that is "rare". Principal Diagnosis right midbrain stroke dyslipidemia Discharge Exam The patient appeared well Vital signs as documented. Left facial droop and some mumbling speech Lungs are clear to auscultation and appear unlabored Cardiac exam, Rhythm is regular.. No murmurs, rubs or gallops. Abdominal exam reveals normal bowel sounds, soft non tender, no masses Extremities are nonedematous and both pedal pulses are normal. Neurologic exam is alert and oriented, with arm weakness Skin is without bruises or rashes Psychologically is without concerns for anxiety or depression. Discharge Data Allergies Allergy/AdvReac Type Severity Reaction Status Date / Time No Known Allergies Allergy Verified 01/09/21 14:49 Consultations 01/09/21 15:41 ED Decision to Admit Stat 01/09/21 18:50 Consult Case Management - Discharge Planning Routine Consult Neurology Routine Ordered Studies 01/09/21 14:42 CT angio head w con Stat CT angio neck with con Stat CT head/brain wo con Stat 01/09/21 16:10 MR brain wo/w con Routine Hospital Course (1) Cerebrovascular accident: Acute CVA out of the window for TPA, with left sided facial droop, left arm weakness and discoordinate, left leg weakness and ataxia. Mild slurring of words and expressive aphasia. NIHSS-4 - Swallow screen passed by speech consult placed. - ASA 81mg -Rosuvastatin high intensity - Neurology consulted-recommend hypercoagulable study these are pending at time of discharge except for antithrombin III which was not ordered due to heparin sc , may consider multiday event as outpt - PT/OT consult- continue rehab as outpatient as needed for recovery - MRI 01/09/21 IMPRESSION: A 9 mm acute right midbrain infarct. - CTA head and neck unremarkable - ECHO with bubble study shows no shunts after definity contrast - Telemetry no afib after monitoring for 24 hours - (2) Hyperlipidemia: Lipid panel from 06/2020 with significantly elevated LDL in the 180s Intolerance with myalgias to atorvastatin in the past Patient is agreeable to starting rosuvastatin (3) Obesity: Patient with metabolic syndrome components - HLD as above recommend secondary risk modification (4) Acid reflux: Continue outpatient medications - followed by PCP, likely time for evaluation for treatment of fdc GERD (5) Seasonal allergies: Continue home loratidine and flonase, discontinue pseudoephedrine portion of Claritin-D in the setting of acute stroke and hypertension (6) Allergic rhinitis: As above. Total Time Total Time Spent Total Time Spent (In Minutes): It required greater than 30 minutes to prepare this patient for discharge Discharge Plan Discharge Items Patient Disposition: Home - Self-Care Reason For Visit: CVA Discharge Diagnosis: acute right mid brain infarct hyperlipidemia Condition on Discharge: Fair Activity: Per Instructions section Activity Comment: please participate in outpt physical and occupational therapy Non-emergency contact: Primary Care Provider and Neurologist Call non-emergency contact if: you have any medication questions and your symptoms worsen Follow-up/Referrals: Anayeli Hooper MD [Primary Care Provider] - 01/14/21 9:20 am Diet: Heart Healthy Addtl Attending Provider Instructions: It is very important that you take a daily aspirin, and find a cholesterol agent you can tolerate, will will prescribe crestor and you may follow up with Dr Hooper to follow how it is affecting you and helping your cholesterol, at the time you are discharged you have some lab results that will be analyzed at an distant lab that will be reviewed with Dr Hooper and the Neurology office. Risk Factors for Stroke: You can reduce your chances of stroke by working with your medical provider to adopt a healthy lifestyle. Some specific ways to lower your chance of stroke are: * If you are a smoker, now is the time to stop smoking cigarettes * If you are diabetic, improve the control of your blood sugars * Avoid excessive amounts of alcohol * Control high blood pressure * Lose weight if you are overweight * Be sure to lead an active lifestyle * Eat a healthy diet low in salt, cholesterol and fat You should know about other risk factors for stroke that you are unable to control. These include: * Age 55 years or older * Male gender * Certain racial groups: , or / * Family History of Stroke, Mini stroke or Heart Attack * Sickle Cell Disease Follow Up: It is important for you to keep your follow up appointments with your medical provider. Who to Call and When: Medical Emergencies: Call 911 immediately if you experience any of the following warning signs and symptoms of Stroke: * Sudden numbness or weakness of the face, arm or leg, especially on one side of the body * Sudden confusion, trouble speaking or understanding * Sudden trouble seeing in one or both eyes * Sudden trouble walking, dizziness, loss of balance or coordination * Sudden severe headache with no cause Do not delay calling 911 if you experience any warning signs or symptoms of a stroke. Delay in seeking medical attention may affect what treatments can be given to you. . Pending Studies at Discharge: Yes Studies:: hypercoagulable workup is sent out and not back Stand-Alone Forms: Medications to Prevent Stroke, My [facility], Work/School Release (Inpt), Smoking Cessation Medications and DC Order Prescriptions: New aspirin 81 mg Tablet,Delayed Release (Dr/Ec) 81 mg PO QAM Qty: 90 RF: 2 loratadine [Wal-itin] 10 mg Tablet 10 mg PO QAM Qty: 30 RF: 2 rosuvastatin [Crestor] 20 mg Tablet 20 mg PO QAM Qty: 30 RF: 0 Continued fluticasone propionate 50 mcg/actuation spray,suspension 2 spray INTNAS DAILY Qty: 48 RF: 1 pantoprazole 40 mg tablet,delayed release (DR/EC) 40 mg PO DAILY Qty: 90 RF: 1 Discontinued loratadine-pseudoephedrine [Loratadine-D] 10-240 mg tablet extended release 24 hr 1 tab PO DAILY RF: 0 Discharge Orders: Discharge Order (Routine); Ordered 01/10/21 Ordered By: Tito Hilliard Admission Data Admit Date/Time: 01/09/21 17:07 Attending Provider: Tito Hilliard Admit Provider: Olinda Hassan Primary Care Provider: Anayeli Hooper Other Providers: Olinda Hassan ; Kyle Streeter Coding Level of Care Code D/C Day Management >30 mins Diagnoses Cerebrovascular accident I63.9 CVA mechanism: unspecified Hyperlipidemia E78.5 Hyperlipidemia type: unspecified Obesity E66.09; Z68.30 Obesity type: due to excess calories Obesity classification: adult class 1 (BMI 30 - 34.9) Serious obesity comorbidity presence: unspecified whether serious comorbidity present Body mass index: BMI 30.0-30.9 Acid reflux K21.9 Esophagitis presence: esophagitis presence not specified Seasonal allergies J30.2 Allergic rhinitis J30.2 Allergic rhinitis trigger: unspecified Allergic rhinitis seasonality: seasonal
[2021-01-15 23:58] LABS: Anti Cardiolipin Ab IgG <14 GPL; Anti Cardiolipin Ab IgM <12 MPL; B2 Glycoprotein IgG <9 SGU (<=20); B2 Glycoprotein IgM <9 SMU (<=20); PTT LA Screen 40 sec (<=40); Protein S Functional(Activity) 108 % (70-150)
== END 2021-01-10 17:27 | disposition home or self-care (01) | DRG 65 ==
LOC: ED 14:27 → 2S 17:07 → SUATTDRO 17:07 → 2S 17:57